=== PATIENT | male | born 1980 | race Caucasian/White ===

== ENCOUNTER 2018-07-30 09:28 | Emergency (ER) | payer MEDICARE, MEDICAID ==
[~2018-07-30] VITALS: Ht 172.7 cm; Wt 79.0 kg
[~2018-07-30 09:28] MED LIST: ALBU6.7H INH; ALBU8.5H8 IH; MUPI15CR TOP
[2018-07-30 09:35] VITALS: BP 121/65
[2018-07-30] MEDS ORDERED: NAPR-56 PO (10:21)
== END 2018-07-30 10:37 | disposition home or self-care (01) ==
LOC: ER 09:28
DX: S93.401A Sprain of unspecified ligament of right ankle, initial encounter (principal); J45.909 Unspecified asthma, uncomplicated; F15.90 Other stimulant use, unspecified, uncomplicated; F11.90 Opioid use, unspecified, uncomplicated; Z79.899 Other long term (current) drug therapy; X50.1XXA Overexertion from prolonged static or awkward postures, initial encounter; Y93.89 Activity, other specified; Y92.89 Other specified places as the place of occurrence of the external cause; Y99.8 Other external cause status
CPT/HCPCS: 29515; 73610; 73630; 99283

== ENCOUNTER 2018-10-22 14:08 | Emergency (ER) | payer MEDICARE, MEDICAID ==
[~2018-10-22] VITALS: Ht 172.7 cm; Wt 81.8 kg
[2018-10-22] MEDS ORDERED: acetaminophen 325mg tablet PO ONE (14:50)
[2018-10-22] MEDS ORDERED: ACET-3067 PO (14:51)
[2018-10-22 15:06] VITALS: BP 135/66
== END 2018-10-22 15:08 | disposition home or self-care (01) ==
LOC: ER 14:08
DX: S92.415A Nondisplaced fracture of proximal phalanx of left great toe, initial encounter for closed fracture (principal); J45.909 Unspecified asthma, uncomplicated; F15.90 Other stimulant use, unspecified, uncomplicated; F11.90 Opioid use, unspecified, uncomplicated; Z79.899 Other long term (current) drug therapy; W50.0XXA Accidental hit or strike by another person, initial encounter; Y93.89 Activity, other specified; Y92.89 Other specified places as the place of occurrence of the external cause; Y99.8 Other external cause status
CPT/HCPCS: 73660; 99283

== ENCOUNTER 2018-11-03 15:10 | Outpatient (CLI) | payer MEDICARE, MEDICAID | END 2018-11-03 16:25 | disposition home or self-care (01) | LOC: ORTHO 15:10 | PROVIDERS: ATTEND Orthopaedic Surgery | DX: S92.412A Displaced fracture of proximal phalanx of left great toe, initial encounter for closed fracture (principal); L84 Corns and callosities; X58.XXXA Exposure to other specified factors, initial encounter; Y93.89 Activity, other specified; Y92.89 Other specified places as the place of occurrence of the external cause; Y99.8 Other external cause status | CPT/HCPCS: 73660; 99213 ==

== ENCOUNTER 2019-01-06 14:24 | Outpatient (CLI) | payer MEDICARE, MEDICAID | END 2019-01-06 15:30 | disposition home or self-care (01) | LOC: ORTHO 14:24 | PROVIDERS: ATTEND Orthopaedic Surgery | DX: S92.412D Displaced fracture of proximal phalanx of left great toe, subsequent encounter for fracture with routine healing (principal); X58.XXXD Exposure to other specified factors, subsequent encounter | CPT/HCPCS: 73660; G0463 ==

== ENCOUNTER 2019-07-27 09:23 | Emergency (ER) | payer MEDICARE, MEDICAID ==
[~2019-07-27] VITALS: Ht 175.3 cm; Wt 90.0 kg
[~2019-07-27 09:23] MED LIST changes: -ALBU6.7H INH; +ALBU6.7H9 INH
[2019-07-27 10:03] VITALS: BP 165/139
[2019-07-27] MEDS ORDERED: GUAI120L55 PO (10:22)
[2019-07-27] MEDS ORDERED: BENZ-16 PO (10:22)
== END 2019-07-27 10:34 | disposition home or self-care (01) ==
LOC: ER 09:24
DX: R05 Cough (principal); J45.909 Unspecified asthma, uncomplicated; F31.9 Bipolar disorder, unspecified; Z79.899 Other long term (current) drug therapy
CPT/HCPCS: 99283

== ENCOUNTER 2020-03-23 08:12 | Emergency (ER) | payer MEDICARE, MEDICAID ==
[~2020-03-23] VITALS: Ht 172.7 cm; Wt 98.8 kg
[~2020-03-23 08:12] MED LIST changes: +GUAI120L55 PO
[2020-03-23 08:24] VITALS: BP 139/81
[2020-03-23] MEDS ORDERED: ONDA4TAB6 PO (09:30)
[2020-03-23] MEDS ORDERED: ibuprofen tablet 400 MG TABLET PO ONE (09:30)
[2020-03-23] MEDS ORDERED: acetaminophen 325mg tablet PO ONE (09:30)
[2020-03-23] MEDS ORDERED: HYDR-3965 PO (09:30)
== END 2020-03-23 09:59 | disposition home or self-care (01) ==
LOC: ER 08:13
DX: S92.355A Nondisplaced fracture of fifth metatarsal bone, left foot, initial encounter for closed fracture (principal); S93.402A Sprain of unspecified ligament of left ankle, initial encounter; J45.909 Unspecified asthma, uncomplicated; F31.9 Bipolar disorder, unspecified; Z79.899 Other long term (current) drug therapy; X58.XXXA Exposure to other specified factors, initial encounter; Y93.89 Activity, other specified; Y92.89 Other specified places as the place of occurrence of the external cause; Y99.8 Other external cause status
CPT/HCPCS: 29125; 73610; 73630; 99284

== ENCOUNTER 2021-07-29 11:09 | Emergency (ER) | payer MEDICARE, MEDICAID ==
[~2021-07-29] VITALS: Ht 172.7 cm; Wt 78.0 kg
[~2021-07-29 11:09] MED LIST changes: +ALBU8.5H17 IH; -ALBU8.5H8 IH; +ONDA4TAB6 PO
[2021-07-29 11:14] VITALS: BP 154/75
[2021-07-29] MEDS ORDERED: ALBUTEROL INHALER 1 PUFF/90 MCG INHALER IH PRN (12:45)
[2021-07-29] MEDS ORDERED: ALBU18HF2 INH (12:45)
[2021-07-29] MEDS ORDERED: albuterol 2.5 MG/3 ML nebule NEB PRN (12:52)
== END 2021-07-29 14:46 | disposition home or self-care (01) ==
LOC: ER 11:09
DX: U07.1 COVID-19 (principal); J02.9 Acute pharyngitis, unspecified; J04.0 Acute laryngitis; J45.909 Unspecified asthma, uncomplicated; Z79.2 Long term (current) use of antibiotics; Z79.899 Other long term (current) drug therapy
CPT/HCPCS: 87635; 99283; C9803

== ENCOUNTER 2022-12-10 18:50 | Emergency (ER) | payer MEDICARE, MEDICAID ==
[~2022-12-10] VITALS: Ht 172.7 cm; Wt 75.0 kg
[~2022-12-10 18:50] MED LIST changes: +ALBU18HF2 INH; +ALBU6.7H14 INH; -ALBU6.7H9 INH
[2022-12-10 19:01] VITALS: BP 106/54
== END 2022-12-10 19:35 | disposition home or self-care (01) ==
LOC: ER 18:52
DX: S01.112A Laceration without foreign body of left eyelid and periocular area, initial encounter (principal); J45.909 Unspecified asthma, uncomplicated; F31.9 Bipolar disorder, unspecified; Z79.899 Other long term (current) drug therapy; X58.XXXA Exposure to other specified factors, initial encounter; Y93.89 Activity, other specified; Y92.89 Other specified places as the place of occurrence of the external cause; Y99.8 Other external cause status
CPT/HCPCS: 12011; 99282

== ENCOUNTER 2023-11-12 15:09 | Outpatient (CLI) | payer MEDICARE, MEDICAID ==
[~2023-11-12 15:09] MED LIST changes: +NAPR-996 PO
== END 2023-11-12 23:59 | disposition home or self-care (01) ==
LOC: RAD 15:09
PROVIDERS: ATTEND Family Medicine
DX: M79.642 Pain in left hand (principal)
CPT/HCPCS: 73130

== ENCOUNTER 2024-01-12 12:41 | Emergency (ER) | payer MEDICARE, MEDICAID ==
[~2024-01-12] VITALS: Ht 172.7 cm; Wt 81.8 kg
[2024-01-12 12:45] VITALS: BP 123/90; PULSE 98; RESP 20; O2SAT 96
[2024-01-12] MEDS ORDERED: IBUP-862 PO (14:26)
[2024-01-12 14:31] VITALS: TEMP 95.8
== END 2024-01-12 14:33 | disposition home or self-care (01) ==
LOC: ER 12:43
DX: S20.213A Contusion of bilateral front wall of thorax, initial encounter (principal); J45.909 Unspecified asthma, uncomplicated; F31.9 Bipolar disorder, unspecified; Z79.899 Other long term (current) drug therapy; Z79.1 Long term (current) use of non-steroidal anti-inflammatories (NSAID); W50.1XXA Accidental kick by another person, initial encounter; Y93.89 Activity, other specified; Y92.89 Other specified places as the place of occurrence of the external cause; Y99.8 Other external cause status
CPT/HCPCS: 71111; 99283

== ENCOUNTER 2024-11-20 15:29 | Emergency (ER) | payer MEDICARE, MEDICAID ==
[~2024-11-20] VITALS: Ht 172.7 cm; Wt 77.8 kg
[~2024-11-20 15:29] MED LIST changes: +IBUP-862 PO; +NAPR-1168 PO; -NAPR-996 PO
[2024-11-20 16:00] VITALS: BP 122/61; PULSE 85; RESP 16; TEMP 98.2; O2SAT 98
--- NOTE | 2024-11-20 16:36 | Physician Documentation ---
History of Present Illness ~ Chief Complaint: See Chief Complaint Stated Complaint: EAR PAIN Time Seen by MD: 16:36 OK to notify your PCP?: Yes Primary Medical Doctor: [facility] Source: patient Mode of Arrival: POV Exam Limitations: no limitations HPI 44-year-old male presents with left cauliflower ear with tenderness, heaviness and swelling for the past 3 days. He reports boxing and has had a cauliflower ear in the past requiring drainage to the right ear. 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 Denies any hearing change in left ear. Medication Reconciliation Allergies: Coded Allergies: No Known Allergies (Unverified , 11/20/24) Scheduled Albuterol Sulfate (Proventil Hfa), 2 PUFFS INH Q6H Albuterol Sulfate (Ventolin Hfa), 2 PUFFS INH Q4HPRN Guaifenesin/Codeine Phosphate (Codeine-Guaifen 10-100 mg/5 ml), 10 ML PO HS Ibuprofen (Ibu), 1 TAB PO Q6H Mupirocin Calcium (Bactroban), 1 APPLIC TOP Q8H Naproxen (Naproxen), 1 TAB PO Q12H Ondansetron Hcl (Zofran), 1 TAB PO Q6H Scheduled PRN Albuterol Sulfate (Proair Hfa), 2 PUFFS IH Q4H PRN for SOB or wheezing Past Medical History Past Medical History: Asthma, Bipolar Past Surgical History: no surgical history Alcohol Use: None Drug Use: none Lives with: Family Lives In: Home Physical Exam Vital Signs: RN Vital Signs have been reviewed: Yes, Temperature: 98.2, Heart Rate: 85, Respiratory Rate: 16, BP: 122/61, Pulse Oximetry: 98, Weight: 77.800 Oxygen Flow Rate: 0 Pulse Oximetry Reflects: adequate oxygenation Physical Exam General: Alert, no apparent distress. HEENT: PERRL, EOMI, no injection, moist mucous membranes. Tenderness and edema to left scapha. Neck: Full range of motion. Procedures Ear Procedure Ear Procedure : Ear Location: Left Tolerated Procedure Well?: yes, no complications Procedure Note Cauliflower ear : Perichondrial hematoma I drained 1.5 mL via 18 gauge needle after infusing this cutaneous area with 1% lidocaine Patient tolerated procedure well Progress Results/Orders Results/Orders Completed Orders - WILI AGUSTIN NP Lidocaine 1% 30ml Vial (Xylocaine 1% Via (11/20/24 16:47) Vital Signs 11/20/24 16:00 Temp 98.2 Pulse 85 Resp 16 B/P (MAP) 122/61 Pulse Ox 98 O2 Flow Rate 0 Departure Disposition: 01 HOME / SELF CARE / HOMELESS Impression: Primary Impression: Cauliflower ear, left ear Condition: Stable Discharge Instructions: Cauliflower Ear Referrals: NO PRIMARY CARE PROVIDER (PCP) Additional Comment Medical Screen Exam This patient recieved a medical screening examination. After reviewing the individual's medical complaints with presenting symptoms and performing an appropriate physical examination, it was determined that no emergency medical condition is present. This individual is also not a women having contractions. Signature Scribe Signature: r Attestation: The note accurately reflects work and decisions made by me.Wili King NP 11/20/24 17:10 JOHANNA SKINNER [employer] WORKER November 20, 2024 16:36 WILI AGUSTIN NP November 20, 2024 17:11
[2024-11-20] MEDS: LIDOcaine 1% 30ml preserv. free vial SQ STA (17:00)
== END 2024-11-20 17:30 | disposition home or self-care (01) ==
LOC: ER 15:30
DX: M95.12 Cauliflower ear, left ear (principal); J45.909 Unspecified asthma, uncomplicated; F31.9 Bipolar disorder, unspecified; Z79.899 Other long term (current) drug therapy
CPT/HCPCS: 69000; 99284; A6258; A6402; Z7610; A6449